=== PATIENT | male | born 1950 | race Caucasian/White ===

== ENCOUNTER → 2016-02-29 | Outpatient (CLI) | payer MEDICARE, BC ==
[2016-02-29 11:13] VITALS: BMI 42.5
== END | disposition home or self-care (01) ==
LOC: MNTWWP 10:45
PROVIDERS: ATTEND Internal Medicine
DX: E66.01 Morbid (severe) obesity due to excess calories (principal); Z68.41 Body mass index [BMI] 40.0-44.9, adult

== ENCOUNTER 2016-06-29 11:12 | Day surgery (SDC) | payer MEDICARE, BC ==
[2016-06-26 14:47] VITALS: BMI 37.6
[~2016-06-29 11:12] MED LIST: LACTATED RINGERS 1,000 ML IV SCH
[2016-06-29 12:08] VITALS: RESP 16; TEMP 97.2
[2016-06-29] MEDS ORDERED: PROPOFOL 10 MG/ML 20 ML VIAL IV ONE (12:32)
--- NOTE | 2016-06-29 13:04 | P.PCN ---
Date of Procedure: 06/29/16 Preoperative Diagnosis: Postoperative Diagnosis: Procedure(s) Performed: Procedure: Colonoscopy and polypectomy. Preoperative diagnosis: Hemoccult-positive stools. Postoperative diagnosis: Right colon polyp snared but no large polyps or cancer. Preparation: HalfLytely prep. Sedation: Was provided by anesthesia. Brief clinical history: The patient is 66-year-old male who is referred for this evaluation because of finding of occult blood in his stools. The patient has no abdominal complaints, bleeding or anemia. No upper GI symptoms. He may have had a colonoscopy more than 10 years ago. No family history of colon cancer. Procedure: With the patient on his left lateral decubitus position and after informed consent and adequate sedation, the perianal area was inspected and it did not show any fissures or fistulas. There were no masses felt on digital rectal examination. The Olympus CFQ 160L video colonoscope was then inserted in the rectum in the usual fashion and advanced to the cecum. There was a small to medium size right colon polyp which was snared and retrieved by suctioning it to the tip of the endoscope and withdrawing the endoscope and then restarting the exam. Elsewhere, the colon appeared healthy. I did not see any other polyps or tumors or any mucosal abnormalities or diverticular disease. I retroflexed the endoscope in the rectum before the endoscope was withdrawn. The patient tolerated the procedure well. Plan: The patient was reassured. In the absence of upper GI complaints or anemia, I did not recommend upper GI workup at this time. This can be left as a contingency for further workup of his Hemoccult positive stools. With the finding of polyp today, I recommended repeat exam in 5 years. He will follow up with you as planned. Implants: Indications for Procedure: Operative Findings: Description of Procedure:
[2016-06-29 13:31] VITALS: BP 120/78; PULSE 81
== END 2016-06-29 13:43 | disposition home or self-care (01) ==
LOC: ORWHC2ENDO 11:12
DX: D12.2 Benign neoplasm of ascending colon (principal); R19.5 Other fecal abnormalities; I10 Essential (primary) hypertension; M10.9 Gout, unspecified; Z79.82 Long term (current) use of aspirin; Z79.899 Other long term (current) drug therapy
CPT/HCPCS: 88305; 45385; J2704

== ENCOUNTER 2017-04-10 23:31 | Inpatient (IN) | payer MEDICARE, BC ==
[2017-04-11] MEDS ORDERED: SODIUM CHLORIDE 0.9% 1,000 ML IV STA ×2 (00:15)
--- NOTE | 2017-04-11 00:19 | ED ---
General Adult HPI - General Chief complaint: Chest Pain Stated complaint: Chest pain Time Seen by Provider: 04/11/17 00:10 Source: patient, family, RN notes reviewed, old records reviewed Mode of arrival: wheelchair Limitations: no limitations - History of Present Illness Initial comments: 66-year-old male presenting with a one-month history of palpitations and chest tightness. Patient began noting his symptoms 1 month ago, had intermittent palpitations while at rest. These have progressed to every evening feeling palpitations and upper chest tightness. No central chest pain. No radiating symptoms. Patient does report some dyspnea. He has past medical history of hypertension and gout. No known history of CAD, no history of any heart problems or arrhythmias. Patient denies diaphoresis, denies nausea or vomiting. Denies cough. Denies fever or chills. Denies abdominal pain. - Related Data Home Medications Medication Instructions Recorded Confirmed Allopurinol [Zyloprim] 300 mg PO DAILY 06/26/16 06/29/16 Aspirin [Adult Low Dose Aspirin EC] 81 mg PO DAILY 06/26/16 06/29/16 Atorvastatin [Lipitor] 40 mg PO DAILY 06/26/16 06/29/16 Benazepril HCl 40 mg PO DAILY 06/26/16 06/29/16 FLUoxetine HCL [PROzac] 20 mg PO DAILY 06/26/16 06/29/16 Hydrochlorothiazide 25 mg PO DAILY 06/26/16 06/29/16 amLODIPine BESYLATE [Norvasc] 5 mg PO DAILY 06/26/16 06/29/16 Allergies Allergy/AdvReac Type Severity Reaction Status Date / Time No Known Allergies Allergy Verified 06/29/16 12:03 Review of Systems ROS Statement: Those systems with pertinent positive or pertinent negative responses have been documented in the HPI. ROS Other: All systems not noted in ROS Statement are negative. Past Medical History Past Medical History: GI Bleed, Hypertension Additional Past Medical History / Comment(s): gout History of Any Multi-Drug Resistant Organisms: None Reported Past Surgical History: Tonsillectomy Past Anesthesia/Blood Transfusion Reactions: No Reported Reaction Past Psychological History: No Psychological Hx Reported Smoking Status: Never smoker Past Alcohol Use History: Occasional Past Drug Use History: None Reported - Past Family History Mother Family Medical History: Cancer Father Family Medical History: Coronary Artery Disease (CAD), Deep Vein Thrombosis (DVT ) Brother(s) Family Medical History: Coronary Artery Disease (CAD), Diabetes Mellitus, Deep Vein Thrombosis (DVT) General Exam Limitations: no limitations General appearance: alert, in no apparent distress Head exam: Present: atraumatic, normocephalic Eye exam: Present: normal appearance, PERRL ENT exam: Present: normal exam, normal oropharynx, mucous membranes moist Neck exam: Present: normal inspection. Absent: tenderness, meningismus Respiratory exam: Present: normal lung sounds bilaterally. Absent: respiratory distress, rales Cardiovascular Exam: Present: normal rhythm, tachycardia GI/Abdominal exam: Present: soft. Absent: distended, tenderness Extremities exam: Present: normal inspection, normal capillary refill. Absent: pedal edema, calf tenderness Neurological exam: Present: alert, oriented X3, CN II-XII intact. Absent: motor sensory deficit Psychiatric exam: Present: normal affect, normal mood Skin exam: Present: warm, dry, intact, normal color. Absent: cyanosis, diaphoretic Course Vital Signs 04/10/17 04/11/17 23:32 00:26 Temperature 97.0 F L Pulse Rate 134 H 135 H Respiratory 16 18 Rate Blood Pressure 134/88 150/60 O2 Sat by Pulse 98 97 Oximetry - Reevaluation(s) Reevaluation #1: 04/11/17 00:45 Patient converts to sinus rhythm prior to Cardizem bolus. 04/11/17 01:15 EKG Findings - EKG Comments: EKG Findings:: EKG shows atrial flutter, rate of 155, there is variable AV block , QRS duration 96, QTC 520, no ST segment elevation. Repeat EKG obtained at 0116 shows normal sinus rhythm, ventricular rate 97, WI interval 204, QRS duration 82, QTC 467, there is no ST segment elevation or depression Medical Decision Making - Medical Decision Making 66-year-old male presenting with palpitations and upper chest tightness, found to be in a flutter with a rate of 155. Patient's symptoms have been ongoing for approximately one month, constant for one week. He is initiated on heparin and Cardizem in the emergency department. Laboratory studies reveal white blood cell count which is mildly elevated at 11.1, hemoglobin stable 15.2, d- dimer is negative. Creatinine 1.3 with no known baseline. BNP is normal. Troponin is negative Repeat EKG is normal sinus. Chest x-ray shows no focal pneumonia or acute intrathoracic process. Thyroid studies are pending. Patient will be admitted for rate control and anticoagulation, cardiology will be placed on consult. - Lab Data Result diagrams: 04/10/17 23:16 04/10/17 23:16 Lab Results 04/10/17 04/10/17 04/10/17 Range/Units 23:16 23:16 23:16 WBC 11.1 H (3.8-10.6) k/uL RBC 5.43 (4.30-5.90) m/uL Hgb 15.2 (13.0-17.5) gm/dL Hct 47.4 (39.0-53.0) % MCV 87.2 (80.0-100.0) fL MCH 27.9 (25.0-35.0) pg MCHC 32.1 (31.0-37.0) g/dL RDW 14.4 (11.5-15.5) % Plt Count 214 (150-450) k/uL Neutrophils % 52 % Lymphocytes % 35 % Monocytes % 7 % Eosinophils % 2 % Basophils % 1 % Neutrophils # 5.8 (1.3-7.7) k/uL Lymphocytes # 3.9 (1.0-4.8) k/uL Monocytes # 0.7 (0-1.0) k/uL Eosinophils # 0.2 (0-0.7) k/uL Basophils # 0.1 (0-0.2) k/uL PT (9.0-12.0) sec INR (<1.2) APTT (22.0-30.0) sec D-Dimer (<0.60) mg/L FEU Sodium 141 (137-145) mmol/L Potassium 4.0 (3.5-5.1) mmol/L Chloride 100 (98-107) mmol/L Carbon Dioxide 30 (22-30) mmol/L Anion Gap 11 mmol/L BUN 23 H (9-20) mg/dL Creatinine 1.30 H (0.66-1.25) mg/dL Est GFR (MDRD) Af Amer >60 (>60 ml/min/1.73 sqM) Est GFR (MDRD) Non-Af 55 (>60 ml/min/1.73 sqM) Glucose 126 H (74-99) mg/dL Calcium 10.0 (8.4-10.2) mg/dL Magnesium 1.9 (1.6-2.3) mg/dL Total Bilirubin 0.7 (0.2-1.3) mg/dL AST 41 (17-59) U/L ALT 49 (21-72) U/L Alkaline Phosphatase 94 (38-126) U/L Total Creatine Kinase 95 (55-170) U/L CK-MB (CK-2) 1.5 (0.0-2.4) ng/mL CK-MB (CK-2) Rel Index 1.6 Troponin I <0.012 (0.000-0.034) ng/mL NT-Pro-B Natriuret Pep pg/mL Total Protein 7.0 (6.3-8.2) g/dL Albumin 4.4 (3.5-5.0) g/dL 04/10/17 04/10/17 Range/Units 23:16 23:16 WBC (3.8-10.6) k/uL RBC (4.30-5.90) m/uL Hgb (13.0-17.5) gm/dL Hct (39.0-53.0) % MCV (80.0-100.0) fL MCH (25.0-35.0) pg MCHC (31.0-37.0) g/dL RDW (11.5-15.5) % Plt Count (150-450) k/uL Neutrophils % % Lymphocytes % % Monocytes % % Eosinophils % % Basophils % % Neutrophils # (1.3-7.7) k/uL Lymphocytes # (1.0-4.8) k/uL Monocytes # (0-1.0) k/uL Eosinophils # (0-0.7) k/uL Basophils # (0-0.2) k/uL PT 9.9 (9.0-12.0) sec INR 1.0 (<1.2) APTT 25.0 (22.0-30.0) sec D-Dimer 0.35 (<0.60) mg/L FEU Sodium (137-145) mmol/L Potassium (3.5-5.1) mmol/L Chloride (98-107) mmol/L Carbon Dioxide (22-30) mmol/L Anion Gap mmol/L BUN (9-20) mg/dL Creatinine (0.66-1.25) mg/dL Est GFR (MDRD) Af Amer (>60 ml/min/1.73 sqM) Est GFR (MDRD) Non-Af (>60 ml/min/1.73 sqM) Glucose (74-99) mg/dL Calcium (8.4-10.2) mg/dL Magnesium (1.6-2.3) mg/dL Total Bilirubin (0.2-1.3) mg/dL AST (17-59) U/L ALT (21-72) U/L Alkaline Phosphatase (38-126) U/L Total Creatine Kinase (55-170) U/L CK-MB (CK-2) (0.0-2.4) ng/mL CK-MB (CK-2) Rel Index Troponin I (0.000-0.034) ng/mL NT-Pro-B Natriuret Pep 111 pg/mL Total Protein (6.3-8.2) g/dL Albumin (3.5-5.0) g/dL Critical Care Time Critical Care Time: Yes Total Critical Care Time: 35 Disposition Clinical Impression: Atrial flutter with rapid ventricular response Disposition: ADMITTED IP TO THIS [facility] Condition: Stable Referrals: Dany Castano MD [Primary Care Provider] - 1-2 days Decision to Admit Reason: Admit from EC Decision Date: 04/11/17 Decision Time: 01:18
[2017-04-11 00:25] LABS: Basophils # (A) 0.1 k/uL (0-0.2); Basophils % (A) 1 %; Eosinophils # (A) 0.2 k/uL (0-0.7); Eosinophils % (A) 2 %; HCT 47.4 % (39.0-53.0); HGB 15.2 gm/dL (13.0-17.5); Lymphocytes # (A) 3.9 k/uL (1.0-4.8); Lymphocytes % (A) 35 %; MCH 27.9 pg (25.0-35.0); MCHC 32.1 g/dL (31.0-37.0); MCV 87.2 fL (80.0-100.0); Mean Platelet Volume 8.1; Monocytes # (A) 0.7 k/uL (0-1.0); Monocytes % (A) 7 %; Neutrophils # (A) 5.8 k/uL (1.3-7.7); Neutrophils % (A) 52 %; Platelet Count 214 k/uL (150-450); RBC 5.43 m/uL (4.30-5.90); RDW 14.4 % (11.5-15.5); WBC 11.1 k/uL (3.8-10.6)
[2017-04-11] MEDS ORDERED: HEPARIN SODIUM,PORCINE 5,000 UNIT/ML 1 ML VIAL IV ONE (00:32)
[2017-04-11] MEDS ORDERED: HEPARIN SODIUM,PORCINE 5,000 UNIT/ML 1 ML VIAL IV PRN (00:32)
[2017-04-11 00:34] LABS: ALT 49 U/L (21-72); AST 41 U/L (17-59); Albumin 4.4 g/dL (3.5-5.0); Alkaline Phosphatase 94 U/L (38-126); Anion Gap 11 mmol/L; Blood Urea Nitrogen 23 mg/dL (9-20); Carbon Dioxide 30 mmol/L (22-30); Chloride 100 mmol/L (98-107); Glucose 126 mg/dL (74-99); Magnesium 1.9 mg/dL (1.6-2.3); Sodium 141 mmol/L (137-145); Total Bilirubin 0.7 mg/dL (0.2-1.3)
[2017-04-11 00:36] LABS: D-Dimer 0.35 mg/L FEU (<0.60)
[2017-04-11 00:40] LABS: Prothrombin Time 9.9 sec (9.0-12.0)
[2017-04-11] MEDS ORDERED: DILTIAZEM 125 MG in SODIUM CHLORIDE 0.9% 100 ML IV ONE (00:43)
[2017-04-11] MEDS ORDERED: DILTIAZEM 5 MG/ML 5 ML VIAL IVP STA (00:43)
[2017-04-11] MEDS ORDERED: HEPARIN SOD,PORK IN 0.45% NACL 25,000 UNIT in 0.45% NACL 1 500ML.BAG IV SCH (00:45)
[2017-04-11 00:47] LABS: Creatine Kinase 95 U/L (55-170)
--- NOTE | 2017-04-11 00:57 | XR ---
EXAMINATION TYPE: XR chest 2V DATE OF EXAM: 04/11/2017 COMPARISON: NONE HISTORY: Tachycardia TECHNIQUE: Frontal and lateral views of the chest are obtained. FINDINGS: There is no heart failure nor confluent pneumonic infiltrate. Costophrenic angles are sandra r. There are chest leads. Bony thorax is intact. Heart size is normal. IMPRESSION: Normal chest
[2017-04-11 01:00] LABS: Creatine Kinase MB 1.5 ng/mL (0.0-2.4); Troponin I <0.012 ng/mL (0.000-0.034)
[2017-04-11] MEDS ORDERED: NALOXONE 0.4 MG/ML 1 ML VIAL IV PRN (01:19)
[2017-04-11] MEDS ORDERED: ACETAMINOPHEN TAB 325 MG TAB PO PRN (01:19)
[2017-04-11] MEDS ORDERED: SODIUM CHLORIDE 0.9% 1,000 ML IV SCH (01:30)
[2017-04-11 01:50] LABS: T4, Free (Free Thyroxine) 0.89 ng/dL (0.78-2.19)
[2017-04-11 02:05] LABS: Glucose,Whole Blood 135 mg/dL (75-99)
[2017-04-11 03:26] VITALS: BMI 36.2
[2017-04-11 07:10] LABS: Creatine Kinase MB 1.3 ng/mL (0.0-2.4); Troponin I 0.018 ng/mL (0.000-0.034)
[2017-04-11] MEDS ORDERED: METOPROLOL TARTRATE 50 MG TAB PO SCH (09:00)
[2017-04-11] MEDS ORDERED: ASPIRIN 81 MG PO SCH (09:00)
[2017-04-11] MEDS ORDERED: APIXABAN 5 MG TAB PO SCH (09:00)
[2017-04-11] MEDS ORDERED: amLODIPine 5 MG TAB PO SCH (09:00)
[2017-04-11] MEDS ORDERED: ATORVASTATIN 40 MG TAB PO SCH (09:00)
[2017-04-11] MEDS: MAGNESIUM SULFATE-D5W PMX 1 GM in DEXTROSE/WATER 1 100ML.BAG IVPB SCH ×2 (09:09→10:53)
--- NOTE | 2017-04-11 09:48 | CONS ---
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 He presented to the emergency room with complaints of having some palpitations, a fluttering feeling in the chest, fatigue and lack of energy and a feeling of some tightness in the chest from time to time. When he came into the hospital in the emergency room, he was found to be in atrial flutter with a 2:1 block. It is unclear as to how long he had the flutter, but he has states he sees he has been having symptoms on and off for at least 3 to 4 weeks. They gave him some IV fluids and while they were planning on giving him Cardizem apparently he spontaneously converted to sinus rhythm and remains in sinus rhythm this morning without symptoms. He was planning on going to [place] wishes to go to [place] as possible. Denies chest pain. No shortness of breath. No palpitations. He feels well. PAST MEDICAL HISTORY: 1. Strong family history of premature CAD. 2. Hypertension. 3. Hypercholesterolemia. 4. No documented evidence of cardiac arrhythmia in the past. He is status post tonsillectomy. No other major surgeries. ALLERGIES: No known drug allergies. MEDICATIONS: Medications include allopurinol 300 mg daily, aspirin 81 mg daily, Lipitor 40 mg daily, benazepril 40 mg daily, Prozac 20 mg daily, hydrochlorothiazide 25 mg daily, amlodipine 5 mg daily. REVIEW OF SYSTEMS: Remarkable for the last 3 weeks of symptoms of dizziness, fatigue, lack of energy, decreased stamina, palpitations, but no yakov syncope. Has no hematemesis, melena, genitourinary symptoms, fever with chills or cough with expectoration. PHYSICAL EXAMINATION: On examination, blood pressure is 140/84, pulse rate is about 86 regular. HEENT: Unremarkable. Fundus was not examined by me. Neck is supple. There is no JVD. Neck is somewhat short and thick cannot assess JVD easily. There is no carotid bruit. Heart exam reveals S1, S2 heard normally. No significant murmurs. Lungs are clear. Abdomen is soft, nontender. Lower extremities reveal diminished pulses. No edema. Central nervous system is grossly within normal limits. EKG initially revealed atrial flutter with 2:1 block. Repeat EKG revealed sinus rhythm without significant ST-T changes. There are voltage criteria for LVH noted. This patient is not a smoker, does not consume alcohol on a regular basis. IMPRESSION: 1. Paroxysmal typical atrial flutter. 2. Hypertension. 3. Hyperlipidemia. 4. Chest tightness and pressure related to tachycardia. RECOMMENDATION: I am recommending that we discontinue the diltiazem drip, place him on a beta yunier, metoprolol tartrate 50 mg daily, perform an echocardiogram, initiate him on Eliquis 5 mg b.i.d. and discontinue the Cardizem drip. If the patient is stable, does well, he can be discharged either later today or tomorrow after the review of echocardiogram. I have advised him not to travel to [place] at least for another 48 hours or so. Thank you very much for the consult. FARRUKH / NAPOLEON: [id number] /
--- NOTE | 2017-04-11 10:40 | ECHOF ---
Referral Reason:Atrial Fib MEASUREMENTS -------- HEIGHT: 162.6 cm WEIGHT: 133.4 kg BP: 148/92 IVSd: 1.2 cm (0.6 - 1.1) LVIDd: 5.3 cm (3.9 - 5.3) LVPWd: 1.3 cm (0.6 - 1.1) IVSs: 1.5 cm LVIDs: 3.8 cm LVPWs: 1.3 cm LAESV Index (A-L): 29.96 ml/m Ao Diam: 3.6 cm (2.0 - 3.7) AV Cusp: 1.7 cm (1.5 - 2.6) LA Diam: 4.1 cm (2.7 - 3.8) MV EXCURSION: 21.432 mm (> 18.000) MV EF SLOPE: 124 mm/s (70 - 150) EPSS: 0.3 cm MV E Parmjit: 0.62 m/s MV DecT: 170 ms MV A Parmjit: 0.63 m/s MV E/A Ratio: 0.97 RAP: 5.00 mmHg RVSP: 18.48 mmHg FINDINGS -------- Sinus rhythm. Morbid Obesity This was a techncally difficult study with suboptimal views, , Lumason utilized for enhancement of im ages. The left ventricular size is normal. There is mild concentric left ventricular hypertrophy. Overa ll left ventricular systolic function is normal with, an EF between 55 - 60 %. The right ventricle is normal in size. LA is midly dilated 29-33ml/m2. The right atrial size is normal. 5.0mg OF Lumason UTLIZED: 2 OR MORE WALL SEGMENTS NOT VISUALIZED. The aortic valve is trileaflet, and appears structurally normal. No aortic stenosis or regurgitation. Mild mitral annular calcification present. Mild mitral regurgitation is present. Mild tricuspid regurgitation present. Right ventricular systolic pressure is normal at < 35 mmHg. There is no evidence of pulmonary hypertension. There is no pulmonic regurgitation present. The aortic root size is normal. There is no pericardial effusion. CONCLUSIONS -------- 1. Morbid Obesity 2. This was a techncally difficult study with suboptimal views, , Lumason utilized for enhancement of images. 3. The left ventricular size is normal. 4. There is mild concentric left ventricular hypertrophy. 5. Overall left ventricular systolic function is normal with, an EF between 55 - 60 %. 6. LA is midly dilated 29-33ml/m2. 7. 5.0mg OF Lumason UTLIZED: 2 OR MORE WALL SEGMENTS NOT VISUALIZED. 8. The aortic valve is trileaflet, and appears structurally normal. No aortic stenosis or regurgitati on. 9. Mild mitral annular calcification present. 10. Mild mitral regurgitation is present. 11. Mild tricuspid regurgitation present. 12. Right ventricular systolic pressure is normal at < 35 mmHg. 13. There is no evidence of pulmonary hypertension. 14. There is no pulmonic regurgitation present. 15. The aortic root size is normal. 16. There is no pericardial effusion. PRIMARY CARE COORDINATOR: Sameera Nicole RDCS
[2017-04-11 12:26] LABS: Creatine Kinase 71 U/L (55-170)
[2017-04-11 12:38] LABS: Creatine Kinase MB 1.3 ng/mL (0.0-2.4); Troponin I <0.012 ng/mL (0.000-0.034)
[2017-04-11 12:52] VITALS: TEMP 98.7
[2017-04-11 14:49] VITALS: BP 142/81; PULSE 69; RESP 20
--- NOTE | 2017-04-11 16:24 | HP ---
HISTORY AND PHYSICAL DATE OF ADMISSION: 04/11/17 PRESENTING COMPLAINT: Feeling unwell. HISTORY OF PRESENTING COMPLAINT: This is a very pleasant 66-year-old patient Dr. Dany Castano. Chronic stable medical conditions include hypertension, hyperlipidemia, gout, depression. The patient has felt his heart racing on and off for quite some time. Yesterday noticed feeling a bit unwell in the chest, slight pressure, heart racing, decided to come down to the ER and was found to be in atrial flutter with rapid ventricular rate. The patient was admitted to the ICU and before even because started on Cardizem drip and bolus. Patient did convert to sinus rhythm sinus rhythm. The patient denies any prior cardiac history. Patient has got fair exercise tolerance. The patient does drink about 3 cups of coffee in the morning and does also drink iced tea and a Coke at night. REVIEW OF SYSTEMS: CONSTITUTIONAL: None. HEENT: None. RESPIRATORY: As above. CARDIOVASCULAR: As above. GASTROINTESTINAL: None. GENITOURINARY: None. MUSCULOSKELETAL: None. DERMATOLOGICAL, HEMATOLOGIC, LYMPHATIC: None. PSYCHIATRY: None. NEUROLOGICAL: None. PAST MEDICAL HISTORY: Hypertension, hyperlipidemia, gout, depression. PAST SURGICAL HISTORY: Tonsillectomy. SOCIAL HISTORY: No smoking. 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 . FAMILY HISTORY: Cancer type unknown. HOME MEDICATIONS: 1. Norvasc 5 mg a day. 2. Hydrochlorothiazide 25 mg a day. 3. Prozac 20 mg a day. 4. Vitamin D3 2000 units p.o. daily. 5. Benazepril 40 mg p.o. daily. 6. Lipitor 40 mg p.o. daily. 7. Aspirin 81 mg p.o. daily. 8. Allopurinol 10 mg p.o. daily. ALLERGIES: None. PHYSICAL EXAMINATION: VITAL SIGNS ON PRESENTATION: Temperature 97, pulse 134, respirations 18, blood pressure 134/88, pulse ox 98% on room. GENERAL APPEARANCE: Well built, BMI 41.1, sitting up, not in distress. EYES: Pupils equal. Conjunctivae normal. HEENT: External appearance of nose and ears normal. Oral cavity normal. NECK: JVD not raised. Mass not palpable. RESPIRATORY: Effort normal, lungs fair entry. CARDIOVASCULAR: First and second sounds, no edema. ABDOMEN: Soft, nontender. Liver and spleen not palpable. LYMPHATIC: No lymph node palpable in neck or axillae. PSYCHIATRY: Alert and oriented x3. Mood and affect normal. NEUROLOGICAL: Pupils equal. Cranial nerves grossly intact. Power and sensation grossly intact. MUSCULOSKELETAL: Unremarkable. INVESTIGATIONS: EKG atrial flutter with rapid ventricular rate. White count 11.1, hemoglobin 15.2, potassium 4, BUN 23, creatinine 1.30, free T4 0.89, troponin 0.012, 0.018, 0.012. ASSESSMENT: 1. Atrial flutter with rapid ventricular rate. The patient has had these symptoms for quite a while likely. These are multiple episodes of paroxysms uncontrolled. Patient did then revert with no cardiac symptoms. 2. Morbid obesity, BMI 41.1. 3. 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 4. Essential hypertension. 5. Hyperlipidemia. 6. Chronic gout. 7. Depression, not otherwise specified. PLAN: Patient initially was put on IV heparin. IV Cardizem was then discontinued. In fact not ever started and given beta yunier. A 2D echocardiogram was ordered. The patient is seen by Dr. Belen Higuera from Cardiology. I did discuss with the patient at length about cutting back on his caffeine intake including Coke, tea and coffee. Care was discussed. MMODL / IJN: [id number] /
--- NOTE | 2017-04-11 21:36 | DS ---
DISCHARGE SUMMARY DATE OF ADMISSION: 04/11/2017. DATE OF DISCHARGE: 04/11/2017 FINAL DIAGNOSES: 1. Atrial flutter, paroxysmal, with rapid ventricular rate, symptomatic, present on admission, probably long-standing. 2. Morbid obesity with body mass index of 41.1. 3. Chronic kidney disease, stage II, probably from hypertensive nephrosclerosis. 4. Essential hypertension. 5. Hyperlipidemia. 6. Chronic gout. 7. Depression not otherwise specified. HOSPITAL COURSE: This patient has been having palpitations, chest symptoms on and off for quite some time. They became more pronounced and he came in, found to be in atrial flutter with rapid ventricular rate. The patient then reverted on his own. Patient does drink excessive caffeine. Patient's 2D echocardiogram came back as unremarkable. I counseled the patient to cut back on his intake of caffeine. The patient remained in sinus rhythm before discharge. The 2D echocardiogram was unremarkable. CONSULTATION: Dr. Belen Higuera, who okayed the patient to be discharged. DISCHARGE MEDICATIONS: 1. Allopurinol 300 mg p.o. daily. 2. Aspirin 81 mg p.o. daily. 3. Lipitor 40 mg p.o. daily. 4. Norvasc 5 mg p.o. daily. 5. Eliquis 5 mg p.o. b.i.d. 6. Vitamin D3 2000 units p.o. daily. 7. Prozac 20 mg p.o. daily. 8. Lopressor 50 mg b.i.d. DISCONTINUED MEDICATIONS: Benazepril and hydrochlorothiazide. Follow up with Dr. Dany Castano in 3 days. Follow up with Dr. eBlen Higuera in one week. PHYSICAL EXAMINATION: Lungs are clear. CARDIOVASCULAR: First and second sounds normal. MMODL / IJN: [id number] /
== END 2017-04-11 17:32 | disposition home or self-care (01) | DRG 309 ==
LOC: EC 23:31 → 6ICU 04-11 01:18
PROVIDERS: ADMIT Hospitalist; ATTEND Hospitalist
DX: I48.3 Typical atrial flutter (principal); Z68.41 Body mass index [BMI] 40.0-44.9, adult; E66.01 Morbid (severe) obesity due to excess calories; I12.9 Hypertensive chronic kidney disease with stage 1 through stage 4 chronic kidney disease, or unspecified chronic kidney disease; N18.2 Chronic kidney disease, stage 2 (mild); I44.30 Unspecified atrioventricular block; F32.9 Major depressive disorder, single episode, unspecified; E78.00 Pure hypercholesterolemia, unspecified; M1A.9XX0 Chronic gout, unspecified, without tophus (tophi); Z79.899 Other long term (current) drug therapy; Z79.82 Long term (current) use of aspirin; Z90.89 Acquired absence of other organs; Z82.49 Family history of ischemic heart disease and other diseases of the circulatory system; Z83.2 Family history of diseases of the blood and blood-forming organs and certain disorders involving the immune mechanism; Z83.3 Family history of diabetes mellitus
CPT/HCPCS: 36415; 71046; 80053; 82550; 82553; 83735; 83880; 84439; 84443; 84484; 85025; 85379; 85610; 85730; 93005; 93306; 96365; 96368; 96376; 99291

== ENCOUNTER → 2017-09-28 | Outpatient (CLI) | payer MEDICARE, BC ==
--- NOTE | 2017-10-08 15:00 | HM ---
HOLTER MONITOR REPORT PROCEDURE PERFORMED: Event monitor PROCEDURE: The patient was monitored between September 28 and October 05, 2017. The rhythm strip revealed sinus mechanism with episode of paroxysmal atrial tachycardia. There was rare single PVCs but no significant pauses. FARRUKH / EDGARN: [id number] /
== END | disposition home or self-care (01) ==
LOC: RADECHMAIN 12:02
PROVIDERS: ATTEND Internal Medicine Clinical Cardiac Electrophysiology
DX: I48.91 Unspecified atrial fibrillation (principal)
CPT/HCPCS: 93270; 93271

== ENCOUNTER → 2017-10-05 | Outpatient (CLI) | payer MEDICARE, BC ==
--- NOTE | 2017-10-06 08:42 | ECHOF ---
Referral Reason:I48.91 Atrial Fib MEASUREMENTS -------- HEIGHT: 182.9 cm WEIGHT: 122.5 kg BP: IVSd: 1.1 cm (0.6 - 1.1) LVIDd: 5.0 cm (3.9 - 5.3) LVPWd: 0.9 cm (0.6 - 1.1) IVSs: 1.3 cm LVIDs: 4.1 cm LVPWs: 1.6 cm LA Diam: 4.7 cm (2.7 - 3.8) LAESV Index (A-L): 22.81 ml/m Ao Diam: 3.4 cm (2.0 - 3.7) LA Diam: 3.6 cm (2.7 - 3.8) MV E Parmjit: 0.76 m/s MV DecT: 161 ms MV A Parmjit: 0.43 m/s MV E/A Ratio: 1.78 RAP: 5.00 mmHg RVSP: 34.27 mmHg FINDINGS -------- Sinus rhythm. This was a technically adequate study. Morbid Obesity The left ventricular size is normal. Left ventricular wall thickness is normal. Overall left vent ricular systolic function is normal with, an EF between 55 - 60 %. The diastolic filling pattern is normal for the age of the patient 10.17. The right ventricle is normal in size. The left atrium is mildly dilated. The right atrial size is normal. There is mild aortic valve sclerosis. There is mild aortic regurgitation. The mitral valve leaflets are mildly thickened. Mild mitral regurgitation is present. Mild tricuspid regurgitation present. There is no evidence of pulmonary hypertension. The right v entricular systolic pressure, as measured by Doppler, is 34.27mmHg. The pulmonic valve was not well visualized. There is no pulmonic regurgitation present. The aortic root size is normal. There is no pericardial effusion. CONCLUSIONS -------- 1. Sinus rhythm. 2. Morbid Obesity 3. The left ventricular size is normal. 4. Left ventricular wall thickness is normal. 5. Overall left ventricular systolic function is normal with, an EF between 55 - 60 %. 6. The diastolic filling pattern is normal for the age of the patient 10.17 7. The left atrium is mildly dilated. 8. There is mild aortic valve sclerosis. 9. There is mild aortic regurgitation. 10. Mild mitral regurgitation is present. 11. Mild tricuspid regurgitation present. 12. There is no evidence of pulmonary hypertension. 13. The pulmonic valve was not well visualized. 14. There is no pulmonic regurgitation present. 15. The aortic root size is normal. 16. There is no pericardial effusion. HEAD OF ACQUISITIONS: Sameera Nicole RDCS
== END | disposition home or self-care (01) ==
LOC: RADECHMAIN 14:00
PROVIDERS: ATTEND Internal Medicine Clinical Cardiac Electrophysiology
DX: I08.3 Combined rheumatic disorders of mitral, aortic and tricuspid valves (principal); E66.01 Morbid (severe) obesity due to excess calories; I48.91 Unspecified atrial fibrillation
CPT/HCPCS: 93306

== ENCOUNTER → 2019-06-26 | Outpatient (CLI) | payer MEDICARE, BC ==
--- NOTE | 2019-07-02 13:15 | P.ARTDOP ---
Arterial Doppler LOWER EXTREMITY ARTERIAL DOPPLER: DATE OF SERVICE: 07/05/2019 Reason for study: Claudication. Doppler waveforms: Multiphasic bilaterally. Pulse volume recording: []. Pressure gradients: []. Ankle-brachial indices: Greater than 1 bilaterally. Toe brachial indices: [] on the right, [] on the left Impression: Normal study.
== END | disposition home or self-care (01) ==
LOC: RADUSWWP 13:55
PROVIDERS: ATTEND Internal Medicine
DX: I73.9 Peripheral vascular disease, unspecified (principal)
CPT/HCPCS: 93922; 93923

== ENCOUNTER → 2020-11-08 | Outpatient (CLI) | payer MEDICARE, BC ==
[2020-11-08 18:56] LABS: African American GFR (CKD) 87.4 (60.0-200.0); Albumin 4.6 g/dL (3.80-4.90); Albumin/Globulin Ratio 2.56 (1.60-3.17); Anion Gap 8.7 mmol/L (4.00-12.00); Calcium 9.9 mg/dL (8.7-10.3); Carbon Dioxide 27.3 mmol/L (21.6-31.8); Chol/HDL Ratio 4.73; Globulin 1.8 g/dL (1.6-3.3); LDL Cholesterol,Calculated 133.6 mg/dL (0.0-131.0); Non-African American GFR(CKD) 75.4 (60.0-200.0); Potassium 4.5 mmol/L (3.5-5.5); Total Bilirubin 1.7 mg/dL (0.3-1.2); Total Protein 6.4 g/dL (6.2-8.2); Uric Acid 6.4 mg/dL (3.7-8.7); VLDL Calculation 15.4 mg/dL (5.00-40.00)
== END | disposition home or self-care (01) ==
LOC: LABWHC1 09:20
PROVIDERS: ATTEND Nurse Practitioner
DX: Z00.00 Encounter for general adult medical examination without abnormal findings (principal); I10 Essential (primary) hypertension; M1A.0510 Idiopathic chronic gout, right hip, without tophus (tophi)
CPT/HCPCS: 36415; 80053; 80061; 84550

== ENCOUNTER → 2021-05-30 | Outpatient (CLI) | payer MEDICARE, BC ==
--- NOTE | 2021-05-30 13:33 | MR ---
EXAMINATION TYPE: MR knee LT wo con DATE OF EXAM: 05/30/2021 COMPARISON: None HISTORY: Left knee pain TECHNIQUE: Multiplanar, multisequence imaging of the left knee is performed without IV contrast. FINDINGS: MEDIAL MENISCUS: Some probable degenerative signal is present within the meniscus, posterior horn of the medial meniscus does show irregularity suggesting a degenerative tear, posterior horn of the medi al meniscus shows irregular appearance sagittal image 24, coronal image #28, and pseudoextrusion note d on coronal images LATERAL MENISCUS: possible vertical tear along the body, coronal image #22 CRUCIATE LIGAMENTS: The anterior and posterior cruciate ligaments are intact and unremarkable. COLLATERAL LIGAMENTS: The medial collateral ligament and lateral collateral ligament complex are inta ct and unremarkable. EXTENSOR MECHANISM: Visualized quadriceps and patellar tendons are intact. EFFUSION: Suprapatellar joint effusion is present, there may be multiple loose bodies present or syn ovial hypertrophy POPLITEAL CYST: Small semimembranosus gastrocnemius cyst is present. 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 IMPRESSION: Advanced osteoarthritis, probable degenerative tear the posterior horn the medial meniscus, joint eff usion and additional findings above
== END | disposition home or self-care (01) ==
LOC: RADMRIMAIN 06:49
PROVIDERS: ATTEND Family Medicine
DX: M17.12 Unilateral primary osteoarthritis, left knee (principal); M94.262 Chondromalacia, left knee

== ENCOUNTER → 2024-06-19 | Outpatient (CLI) | payer MEDICARE, BC ==
--- NOTE | 2024-06-19 17:29 | CA ---
Stress Echo Report Gama Begum Age: 73 Gender: M : 1950 Exam Date: 06/19/2024 10:26 Exam Location: [facility] Ht (in): 71 Wt (lb): 255 Ordering Physician: Paul Bermudez MD Referring Physician: PAUL BERMUDEZ,, Scale Operator: JAYE Technologist Procedure CPT: Indication: R07.9 CHEST PAIN ICD-9 Codes: Rhythm: Patient History: Cardiac Medications: HYDROCHLOROTHIAZIDE, ROVASTATIN, ALLOPIRINOL, TAMSULOSIN, METOPROLOL Medications in past 24 hours: Contrast: N/A Stress Results Protocol: Talib Total dose(mL): NA Exercise Duration (min:sec): 3:[address] Depression (mm): Angina Score: Oden Score: METS: 5.4 Resting HR: 76 Resting BP: 151 / 89 Peak HR: 177 Peak BP: 206 / 63 Max Predicted HR: 146 121 % Max Predicted HR Target HR: 124 Double Product: [id number] Stress Summary: BP Response: Reason for Termination: MAX EXERTION/TARGET HR Cardiac Symptoms: BREANNA ECG Analysis Resting ECG: Stress ECG: Arrhythmia: Echo Analysis Resting Echo: Peak Echo Analysis: MEASUREMENTS (Male/Female) Normal Values CONCLUSIONS Baseline EKG revealed sinus mechanism with sinus arrhythmia. No ST segment changes. Patient walked for 3 minutes 42 seconds and achieved a maximal heart rate of 177 bpm. There were short runs of atrial fibrillation and isolated PVCs. No ST segment changes to indicate ischemia. Limited exercise capacity without clear- cut evidence of ischemia. Baseline echo images revealed normal wall motion and wall thickening of all segments. At peak exercise there was excellent augmentation of left ventricular contractility involving all segments suggesting that there is no evidence of any stress-induced ischemia. Final impression: By EKG criteria this is a negative stress test with limited exercise capacity with short runs of atrial fibrillation. Normal stress echocardiogram without evidence of ischemia Dr. Edgardo Higuera MD (Electronically Signed) Final Date: 19 Jun 2024 17:28
== END | disposition home or self-care (01) ==
LOC: RADNMMAIN 09:49
PROVIDERS: ATTEND Internal Medicine Interventional Cardiology
DX: I48.91 Unspecified atrial fibrillation (principal); I49.3 Ventricular premature depolarization
CPT/HCPCS: 93351

== ENCOUNTER → 2024-07-31 | Outpatient (CLI) | payer MEDICARE, BC ==
--- NOTE | 2024-09-02 22:19 | P.CEMON ---
30 DAY EVENT MONITOR REPORT: INDICATION: Atrial fibrillation I48.91. START DATE: 07/31/2024 END DATE: 08/29/2024 Patient wore the monitor for 25 days 21 hours FINDINGS: Maximum heart rate 120 bpm, lowest heart rate 32 bpm Average heart rate is 62 bpm There were no observed atrial fibrillation, atrial flutter 1% PVC burden, 3% PAC burden. 7 beat run of nonsustained ventricular t achycardia noticed during the study. There was a pause of 2.4 seconds noticed at 4 AM on 04/18/2024, mechanism of bradycardia seems to be sinus bradycardia. Patient reported symptoms of chest pain which corresponded to sinus rhythm. Noman Becker MD, FACC, RPVI Thank you for allowing [facility] to participate in this patient's care. Feel free to reach out in case of any followup questions.
--- NOTE | 2024-09-03 09:34 | EM ---
30 DAY EVENT MONITOR REPORT: INDICATION: Atrial fibrillation I48.91. START DATE: 07/31/2024 END DATE: 08/29/2024 Patient wore the monitor for 25 days 21 hours FINDINGS: Maximum heart rate 120 bpm, lowest heart rate 32 bpm Average heart rate is 62 bpm There were no observed atrial fibrillation, atrial flutter 1% PVC burden, 3% PAC burden. 7 beat run of nonsustained ventricular tachycardia noticed during the study. There was a pause of 2.4 seconds noticed at 4 AM on 04/18/2024, mechanism of bradycardia seems to be sinus bradycardia. Patient reported symptoms of chest pain which corresponded to sinus rhythm. MTDD
== END | disposition home or self-care (01) ==
LOC: RADECHMAIN 13:21
PROVIDERS: ATTEND Internal Medicine Interventional Cardiology
DX: I48.91 Unspecified atrial fibrillation (principal); I47.20 Ventricular tachycardia, unspecified
CPT/HCPCS: 93270